=== PATIENT | female | born 1940 | race Caucasian/White ===

== ENCOUNTER 2019-02-10 14:22 | Emergency (ER) | payer BC, OTHER ==
[~2019-02-10] VITALS: Ht 167.6 cm; Wt 77.1 kg
[2019-02-10 16:00] VITALS: BP 119/64
== END 2019-02-10 18:32 | disposition home or self-care (01) ==
LOC: EDBD 14:22 → ER 15:01
DX: G44.309 Post-traumatic headache, unspecified, not intractable (principal)
CPT/HCPCS: 70450; 72125; 93005